=== PATIENT | male | born 2005 | race Caucasian/White ===

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

== ENCOUNTER 2025-02-02 17:34 | Emergency (ER) | payer BC, MEDICAID ==
[2025-02-02] MEDS ORDERED: Ondansetron 4 MG/2 ML SDV IVPUSH ONE (18:44)
[2025-02-02] MEDS ORDERED: Sodium Chloride 0.9% 10 ML Syringe FLUSH PRN (18:44)
[2025-02-02] MEDS ORDERED: Sodium Chloride 0.9% 2.5 ML Syringe FLUSH PRN (18:44)
[2025-02-02] MEDS ORDERED: Sodium Chloride 0.9% 20 ML SDV IV PRN (18:44)
[2025-02-02] MEDS ORDERED: Sodium Chloride 0.9% 1,000 ML IV SCH (18:45)
== END 2025-02-02 19:20 | disposition left against medical advice (07) ==
LOC: MW.ED 17:34
DX: R10.84 Generalized abdominal pain (principal); R11.2 Nausea with vomiting, unspecified; F17.210 Nicotine dependence, cigarettes, uncomplicated; Z79.899 Other long term (current) drug therapy
CPT/HCPCS: 99283